=== PATIENT | female | born 1930 | race Caucasian/White ===

== ENCOUNTER 2016-09-07 23:34 | Emergency (ER) | payer SELFPAY ==
[~2016-09-07] VITALS: Ht 152.4 cm; Wt 52.5 kg
[~2016-09-07 23:34] MED LIST: ASPI81TA3 PO; BENA10TA48 PO; CARV12.598 PO; CELE200C PO; CLON1TAB3 ORAL; FER325 PO; FOLI-49 PO; GLIP5TAB13 PO; LEVO500T10 PO; OMEP40CA6 PO; PRED5 PO; SULF500T5 PO; TRAM50TA2 PO
[2016-09-07 23:45] VITALS: Ht 152.4 cm; Wt 52.5 kg
== END 2016-09-08 03:50 | disposition left against medical advice (07) ==
LOC: E/R 23:34
DX: Z53.21 Procedure and treatment not carried out due to patient leaving prior to being seen by health care provider (principal)
CPT/HCPCS: 82962